=== PATIENT | female | born 2005 | race Hispanic/Latino ===

== ENCOUNTER 2024-01-12 22:40 | Emergency (ER) | payer BC ==
[~2024-01-12] VITALS: Ht 152.4 cm; Wt 72.1 kg
[2024-01-12 23:38] LABS: APPEARANCE,URINE CLEAR (CLEAR); BILIRUBIN,URINE NEGATIVE (NEGATIVE); COLOR,URINE LIGHT-YELLOW (YELLOW); GLUCOSE, URINE (UA) NEGATIVE (NEGATIVE); KETONES,URINE NEGATIVE (NEGATIVE); LEUKOCYTE ESTERASE ,URINE NEGATIVE Leu/uL (NEGATIVE); NITRATE,URINE NEGATIVE (NEGATIVE); OCCULT BLOOD,URINE NEGATIVE (NEGATIVE); PROTEIN,URINE 10 mg/dL (NEGATIVE); UROBILINOGEN,URINE 0.2 mg/dL (0.2-1.0)
[2024-01-12 23:43] LABS: ADD UA MICROSCOPIC YES
[2024-01-12 23:46] LABS: SQUAMOUS EPITHELIAL CELL,UR RARE /HPF (0-2)
[2024-01-12 23:48] LABS: HCG,QUALITATIVE URINE NEGATIVE (NEGATIVE)
[2024-01-13] MEDS: CYCLOBENZAPRINE HCL 10 MG TABLET PO ONE (00:18)
[2024-01-13] MEDS: ketOROlac 60 MG VIAL (30MG/ML) IM ONE (00:18)
[2024-01-13 00:52] VITALS: BP 107/68; PULSE 76; RESP 16; TEMP 98.3; O2SAT 98
[2024-01-13] MEDS ORDERED: IBUP-2070 PO (01:01)
[2024-01-13] MEDS ORDERED: CYCL10TA16 PO (01:01)
== END 2024-01-13 01:12 | disposition home or self-care (01) ==
LOC: EDH 22:40
DX: M62.830 Muscle spasm of back (principal); M54.50 Low back pain, unspecified; Z79.899 Other long term (current) drug therapy
CPT/HCPCS: 99284; 81001; 81025; 96372; J1885

== ENCOUNTER 2025-03-11 15:04 | Emergency (ER) | payer BC ==
[~2025-03-11] VITALS: Ht 165.1 cm; Wt 70.3 kg
[~2025-03-11 15:04] MED LIST: CYCL10TA16 PO; IBUP-1492 PO
[2025-03-11] MEDS ORDERED: 0.9%NACL 1000ML 1,000 ML IV STA (15:17)
[2025-03-11] MEDS: acetaMINOPHEN/coDEINE 120/12MG 5ML PO ONE (16:08)
[2025-03-11 16:44] LABS: SARS-CoV-2, RNA, NAAT NEGATIVE SARS CoV-2 (NEGATIVE)
[2025-03-11 16:51] LABS: INFLUENZA TYPE A Negative For Type A (NEGATIVE); INFLUENZA TYPE B Negative For Type B (NEGATIVE)
--- NOTE | 2025-03-11 17:58 | ERN ---
ED Note History of Present Illness Stated Complaint: SOB, SORE THROAT Chief Complaint: Sore Throat Time Seen by MD: 15:07 Time Seen by Midlevel: 15:11 Dictation: 19-year-old female with a history of asthma coming in with complaints of change in voice and feeling something in her throat and feeling generally weak. Patient states on Tuesday she had an asthma attack which she has used her inhaler. Today she called the PCP and was told to come to the emergency room. Patient denies fever, cough Allergies: Coded Allergies: No Known Allergies (Unverified Allergy, Unknown, 01/12/24) Home Meds Active Scripts Cyclobenzaprine HCl (Flexeril) 10 Mg Tab, 10 MG PO TID for muscle sstiffness, #14 TAB 0 Refills Prov:DIAMOND BRUNO MD 01/13/24 Ibuprofen (Ibuprofen) 600 Mg Tablet, 600 MG PO Q6H PRN for PAIN, #15 TAB Prov:DIAMOND BRUNO MD 01/13/24 Past Medical History Past Medical History: Asthma Surgical History: None LMP: Feb 27, 2025 Review of System Dictation Constitutional: Negative for fever,chills, and weight loss Eyes: Negative for injury, pain,redness, and discharge ENT: Negative for injury,pain or swelling, complaining of foreign body sensation to her throat Cardiovascular: Negative for chest pain, palpitations, and edema Respiratory: Negative for shortness of breath, cough, and wheezing, Abdomen/GI: Negative for abdominal pain, nausea, vomiting, diarrhea, and constipation Back: Negative for injury and pain : Negative for injury, bleeding and discharge MS/Extremity: Negative for injury and deformity Skin: Negative for rash, and discoloration Neuro: Negative for headache, weakness, numbness, tingling, and seizure Psych: Negative for suicide ideation, homicidal ideation, and hallucinations Review of Systems: was completed Initial Vital Sign VS Vital Signs Date Time Temp Pulse Resp B/P (MAP) Pulse Ox O2 Delivery O2 Flow Rate FiO2 03/11/25 15:05 97.9 68 16 125/77 99 Room Air 0 03/11/25 17:18 21 Physical Exam Dictation General: awake, alert, NAD Head/Face: Normocephalic, atraumatic Eyes: PERRL, EOMI, vision at baseline ENT: oral cavity clear, TMs clear, no signs of infection, mild erythema of the oropharynx area, there is no enlarged tonsils, no effacement, no angioedema, Neck: Trachea midline, supple, no nuchal rigidity Cardiovascular: RRR, normal S1/S2, No MRGs, no JVD Respiratory: CTAB, no respiratory distress, No rales or wheezes Abdomen: Soft, non-tender, non-distended, normal bowel sounds, no guarding or rebound. Skin: Warm, dry, normal turgor, no rash MS/Extremity: Pulses equal, no cyanosis, neurovascular intact, FROM Neuro: COAx4, GCS 15, strength 5/5, CN 2-12 intact, normal cerebellar exam, normal gait, Psych: Normal behavior, mood, and affect normal Results (Laboratory/Radiology) Laboratory/Radiology Laboratory Tests Test 03/11/25 16:17 Influenza Type A Antigen Negative For Type A Influenza Type B Antigen Negative For Type B SARS-CoV-2, RNA, NAAT NEGATIVE SARS CoV-2 Group A Streptococcus Rapid negative (NEGATIVE) Labs Reviewed?: Yes CT Scan Comment: [place] [address] IMAGING REPORT Signed PATIENT: PJ SOLER MR#: [id number] : [birth year] SEX: F AGE: 19 LOCATION: [facility] ORDER 14 STATUS: REG REPORT#: [id number] SERVICE 13 REASON: feels fb in throat ORDERING PHYSICIAN: TRELL CORONA CNP PROCEDURE: NKSOFTI WO - CT NECK SOFT TISS W/O CONTRAST EXAM: CT Neck without IV Contrast CLINICAL HISTORY: Feels foreign body in the throat. TECHNIQUE: Contiguous axial images obtained through the neck. Reconstructed imaging. Reformatted/MPR images were performed. CT scan done according to ALARA (As Low as Reasonably Achievable). CONTRAST: No. COMPARISON: None. FINDINGS: Small mucus retention cyst noted in the left maxillary sinus. Included intracranial substances, orbits, and remaining paranasal sinuses are grossly unremarkable. Nasopharynx, oropharynx, oral cavity, hypopharynx and larynx are grossly unremarkable. Parotid, submandibular and thyroid glands are grossly unremarkable. No pathologically enlarged lymphnodes. Visualized included lung apices are grossly clear. No acute osseous abnormality detected. IMPRESSION: No acute pathology. No obvious abnormality in the throat. Small mucus retention cyst in the left neck there is sinus. /[employer] ED Course ED Course Orders Procedure Category Date Status Time 0.9%Nacl 1000ml (Ns PHA 03/11/25 Complete 1000ml) 15:17 Rapid (Group A Strep) LAB 03/11/25 Complete 15:21 Acetaminophen-Codeine PHA 03/11/25 Complete Elixer (Tylenol-Co 16:00 Prednisone 10mg Tab PHA 03/11/25 Complete (Deltasone/Orasone 1 16:00 Covid Rna Naat LAB 03/11/25 Complete 15:45 Influenza Type A & B, LAB 03/11/25 Complete Rapid 15:45 Ct Neck Soft Tiss W/O CT 03/11/25 Resulted Contrast 17:14 Current Medications Medications (Trade) Dose Ordered Sig/Ryan Route PRN Reason Start Time Stop Time Status Last Admin Dose Admin Acetaminophen/ Codeine Phosphate (TYLenol-coDEINE (120/12MG 5ML) ELIXIR) 5 ml ONCE ONCE PO 03/11/25 16:00 03/11/25 16:01 DC 03/11/25 16:08 Methylprednisolone Sodium Succinate (Solu-medROL 125MG) 125 mg ONCE ONCE IVP 03/11/25 15:30 03/11/25 15:43 DC Prednisone (deltaSONE/ ORASONE 10MG) 10 mg ONCE ONCE PO 03/11/25 16:00 03/11/25 15:45 DC Sodium Chloride 1,000 ml @ 1,000 mls/hr Q1H STAT IV 03/11/25 15:17 03/11/25 15:43 DC Vital Signs Date Time Temp Pulse Resp B/P (MAP) Pulse Ox O2 Delivery O2 Flow Rate FiO2 03/11/25 17:18 97.9 65 16 121/79 99 Room Air* 0 03/11/25 15:05 97.9 68 16 125/77 99 Room Air 0 Medical Decision Making MDM MDM: 19-year-old female with a history of asthma coming in with complaints of change in voice and feeling something in her throat and feeling generally weak. Patient states on Tuesday she had an asthma attack which she has used her inhaler. Today she called the PCP and was told to come to the emergency room. Patient denies fever, cough. Swabs are negative for COVID flu and strep. Case discussed with the ER MD Dr. Cook recommended or up prednisolone. On re- examination after medication patient states still feels like there is something in her throat. CT scan of the neck soft tissue ordered. CT scan of the neck soft tissue shows no acute pathology no obvious abnormality in his throat. Notified ER MD of CT findings, okay for patient to be discharged to follow up outpatient. Discussed findings with the patient. Educated patient that I will treat this as strep pharyngitis, foreign body feeling your throat could be due to the irritation. Educated on signs and symptoms of when to return back to the emergency room and to follow up with PCP in the next 1-2 days. Patient verbalized understanding, answered all questions. Differential diagnosis: Strep, foreign body in throat, pharyngitis, laryngitis Rationale: Tests considered and ordered secondary to shared decision making include: Previous outside records reviewed: Old ER visits. Risk of complication and/or morbidity or mortality of patient management: None Medications-Per medication reconciliation Need for hospitalization: Patient does not meet criteria for hospitalization. Need for emergency major/minor surgery: No There are no social concerns with this patient. Prescription drug management Prescriptions will include symptomatic care Patient's prior external medical records from other ER visits were reviewed by me as indicated. Prior testing and results from previous visits were reviewed. Prior tests were taken into account with medical decision making and resource utilization, independent historian/historians were used to obtain complete medical history. I independently interpreted the test that were performed, results were reviewed by me and considered findings on radiology if ordered. Medical management and examination interpretation discussions were had by me with other qualified healthcare professionals as indicated for the patient's care. DX & DISP Disposition: Discharge Departure Impression: Primary Impression: Strep pharyngitis Additional Impression: Acute laryngitis Condition: Stable Scripts Amoxicillin (Amoxicillin) 500 Mg Tablet 1 TAB PO BID for 10 Days, #20 TAB 0 Refills Prov: TRELL CORONA CNP 03/11/25 Additional Instructions: Follow up with your primary care provider in 1-2 days. If you have any worsening symptoms, like tachypnea, low oxygen saturation, increased shortness a breath, or your asthma inhaler isn't working return to the ER. Referrals: JAYDON RAGSDALE PA-C (PCP) Time of Disposition: 18:59 I have reviewed the case, and I agree with, Diagnosis and Plan TRELL CORONA [facility] Mar 11, 2025 17:58
--- NOTE | 2025-03-11 18:49 | HMCIMG ---
EXAM: CT Neck without IV Contrast CLINICAL HISTORY: Feels foreign body in the throat. TECHNIQUE: Contiguous axial images obtained through the neck. Reconstructed imaging. Reformatted/MPR images were performed. CT scan done according to ALARA (As Low as Reasonably Achievable). CONTRAST: No. COMPARISON: None. FINDINGS: Small mucus retention cyst noted in the left maxillary sinus. Included intracranial substances, orbits, and remaining paranasal sinuses are grossly unremarkable. Nasopharynx, oropharynx, oral cavity, hypopharynx and larynx are grossly unremarkable. Parotid, submandibular and thyroid glands are grossly unremarkable. No pathologically enlarged lymphnodes. Visualized included lung apices are grossly clear. No acute osseous abnormality detected. IMPRESSION: No acute pathology. No obvious abnormality in the throat. Small mucus retention cyst in the left neck there is sinus. /[place]
[2025-03-11 18:58] VITALS: BP 118/76; PULSE 76; RESP 18; TEMP 97.9; O2SAT 99
[2025-03-11] MEDS ORDERED: AMOX500T2 PO (19:00)
== END 2025-03-11 19:04 | disposition home or self-care (01) ==
LOC: EDH 15:04
DX: J02.0 Streptococcal pharyngitis (principal); J04.0 Acute laryngitis; J45.909 Unspecified asthma, uncomplicated; Z20.822 Contact with and (suspected) exposure to COVID-19; Z79.899 Other long term (current) drug therapy
CPT/HCPCS: 70490; 87635; 87804; 87880; 99284